=== PATIENT | male | born 1975 | race Caucasian/White ===

== ENCOUNTER 2022-09-18 13:49 | Outpatient (OUT) | payer OTHER, SELFPAY ==
[2022-09-18 14:22] LABS: Basophils Absolute Auto 0.1 10^3/uL (0.0-0.1); Basophils Percent Auto 0.7 % (0.2-2.0); Eosinophils Absolute Auto 0.2 10^3/uL (0.0-0.7); Eosinophils Percent Auto 1.3 % (0.9-7.0); Hematocrit 43.7 % (42.0-54.0); Hemoglobin 15.1 g/dL (14.0-18.0); Immature Granulocytes Abs Auto 0.12 10^3/uL (0.00-0.03); Immature Granulocytes Pct Auto 0.9 % (0.0-0.5); Lymphocytes Absolute Auto 1.7 10^3/uL (1.2-3.8); Lymphocytes Percent Auto 13.6 % (20.5-60.0); Mean Corpuscular HGB Conc 34.6 g/dL (29.9-35.2); Mean Corpuscular Hemoglobin 29.4 pg (25.9-34.0); Mean Platelet Volume 8.9 fL (9.5-13.5); Monocytes Percent Auto 7.6 % (1.7-12.0); Neutrophils Absolute Auto 9.7 10^3/uL (1.4-6.5); Neutrophils Percent Auto 75.9 % (43.0-75.0); Platelet Count 434 10^3/uL (150-450); Red Blood Count 5.14 10^6/uL (4.70-6.10); Red Cell Distribution Width 14.3 % (11.0-15.0); White Blood Count 12.8 10^3/uL (4.0-11.0)
[2022-09-18 14:50] LABS: Estimated Average Glucose 85 mg/dL; Glycohemoglobin A1C 4.6 % (4.5-6.2)
[2022-09-18 15:02] LABS: Alanine Aminotransferase 90 U/L (16-63); Albumin Globulin Ratio 0.5; Albumin Level 2.3 g/dL (3.4-5.0); Alkaline Phosphatase 57 U/L (46-116); Anion Gap 11.1; Aspartate Amino Transferase 119 U/L (15-37); BUN Creatinine Ratio 13.2; Bilirubin Total 0.6 mg/dL (0.2-1.0); Calcium 9.9 mg/dL (8.5-10.1); Carbon Dioxide 28.2 mmol/L (21.0-32.0); Chloride 98 mmol/L (98-107); Chol HDL Ratio 14.3; Cholesterol 215 mg/dL (<=200); Estimated GFR (African America >60 (>=60); Estimated GFR (Non-African Ame >60 (>=60); Free Thyroxine Index 1.63 (1.30-4.50); Globulin 4.5 g/dL; Glucose 93 mg/dL (74-106); HDL Cholesterol 15 mg/dL (40-60); Potassium 3.3 mmol/L (3.5-5.1); Sodium 134 mmol/L (136-145); Thyroid Stimulating Hormone 2.078 uIU/mL (0.358-3.740); Total Protein 6.8 g/dL (6.4-8.2); Triglycerides 154 mg/dL (<=150); VLDL CHOLESTEROL 30.8 mg/dL
[2022-09-18 15:33] LABS: Prostate Specific Antigen Scrn 1.85 ng/mL (<=4.00)
== END 2022-09-18 13:50 | disposition home or self-care (01) ==
LOC: LAB 13:54
PROVIDERS: PCP Family Medicine; Visit Provider Family Medicine
DX: Z00.00 Encounter for general adult medical examination without abnormal findings (principal); E78.00 Pure hypercholesterolemia, unspecified; E11.9 Type 2 diabetes mellitus without complications; Z12.5 Encounter for screening for malignant neoplasm of prostate; Z12.11 Encounter for screening for malignant neoplasm of colon
CPT/HCPCS: 36415; 80053; 80061; 83036; 84436; 84443; 84479; 85025; G0103

== ENCOUNTER 2023-08-26 14:10 | Outpatient (OUT) | payer BC, SELFPAY ==
--- NOTE | 2023-08-26 14:12 | XR_ITS ---
The [address] [address] Patient Name: CLAUDETTE CHICAS MRN: [id number] date: 1975 Sex: M Assigned Patient Location: RAD Current Patient Location: [facility] Accession/Order Number: [id number] Exam Date: 08/26/2023 14:18 Report Date: 08/26/2023 14:35 At the request of: REDDY HARVEY Procedure: XR foreign body eye EXAMINATION: XR foreign body eye HISTORY: Foreign Body Eye COMPARISON: No relevant comparison available. FINDINGS: ORBITS: Negative for a metallic foreign body. OTHER: Negative. XR/XR foreign body eye IMPRESSION: No metallic foreign body in the orbits Electronically authenticated by: AGNIESZKA ESTEBAN Date: 08/26/2023 14:35
== END 2023-08-26 14:11 | disposition home or self-care (01) ==
LOC: RAD 14:10
PROVIDERS: PCP Family Medicine; Visit Provider Family Medicine
DX: Z01.818 Encounter for other preprocedural examination (principal); M54.16 Radiculopathy, lumbar region
CPT/HCPCS: 70030

== ENCOUNTER 2023-08-27 10:30 | Outpatient (OUT) | payer BC, SELFPAY ==
--- NOTE | 2023-08-27 10:34 | MR_ITS ---
The [place] [id number] Patient Name: CLAUDETTE CHICAS MRN: [id number] date: 1975 Sex: M Assigned Patient Location: MRI Current Patient Location: MRI Accession/Order Number: [id number] Exam Date: 08/27/2023 10:40 Report Date: 08/27/2023 13:17 At the request of: REDDY HARVEY Procedure: MR lumbar spine wo con MR lumbar spine wo con, 08/27/2023 10:40 AM EDT INDICATION: Lumbar Radiculopathy M54.16 COMPARISON: There is no appropriate prior study for comparison. TECHNIQUE: Multiplanar, multisequential MRI images of lumbar spine were obtained without contrast. FINDINGS: For dictation purposes, the lowest complete disc space in the lumbar spine considered as L5-S1. There is loss of normal physiologic lumbar lordosis. The vertebral height is preserved. The conus medullaris is at the level of L1. No signal abnormality within the visualized spinal cord is noted. There is bilateral short pedicles predisposing patient to canal stenosis. Level of T12-L1, there is mild bilateral neuroforaminal narrowing and moderate canal stenosis. At the level of L1-L2, there are disc bulge with no neuroforaminal narrowing and mild canal stenosis. At the level of L2-L3, there are disc bulge with mild right and moderate left neuroforaminal narrowing and moderate canal stenosis. At the level of L3-4, there are disc bulge with severe bilateral neuroforaminal narrowing and severe canal stenosis. There is status post bilateral laminectomy at this level. At the level of L4-5, there are disc bulge with mild right and moderate left neuroforaminal narrowing and mild canal stenosis. At the level of L5-S1, there are disc bulge with moderate right and mild left neuroforaminal narrowing and no canal stenosis. The paraspinal muscles are unremarkable. MR/MR lumbar spine wo con IMPRESSION: Moderate degenerative changes of lumbar spine in particular at L3-L4. Electronically authenticated by: KAVON UF Date: 08/27/2023 13:17
== END 2023-08-27 10:31 | disposition home or self-care (01) ==
LOC: MRI 10:30
PROVIDERS: PCP Family Medicine; Visit Provider Family Medicine
DX: M54.16 Radiculopathy, lumbar region (principal); M51.36 Other intervertebral disc degeneration, lumbar region
CPT/HCPCS: 72148